=== PATIENT | female | born 1995 | race Caucasian/White ===

== ENCOUNTER 2019-04-13 01:20 | Emergency (ER) | payer BC ==
[~2019-04-13] VITALS: Ht 170.2 cm; Wt 59.0 kg
[2019-04-13 01:32] VITALS: BP 115/81
[2019-04-13] MEDS ORDERED: DIPHENHYDRAMINE25 M1 ORAL (01:56)
[2019-04-13] MEDS ORDERED: PREDNISONE20 MG ORAL (01:56)
[2019-04-13 02:01] VITALS: BP 115/81
--- NOTE | 2019-04-13 05:08 | Emergency Room Report ---
History of Present Illness General Chief Complaint: Allergic Reaction Source: Patient Present Illness HPI 24-year-old female presents ED for evaluation. Complaining of lip swelling which started last night. States that Thursday evening she had a turkey burger after which she started having nausea vomiting symptoms. States symptoms resolved by Thursday evening and at that time she started developing lip swelling. Patient denies any known food or drug allergies. Patient states she did take multiple [id number] medications to work on her symptoms prior to onset of lip swelling. Denies any tongue swelling or throat swelling. Denies any shortness of breath. Denies pain. Denies any rash. No other aggravating relieving factors. Denies any other associated symptoms Allergies: Coded Allergies: No Known Allergies (Unverified , 04/13/19) Patient History Past Medical History: none Past Surgical History: none Pertinent Family History: none Social History: Denies: smoking, alcohol use, drug use Last Menstrual Period: 04/03/19 Now: No Immunizations: UTD Reviewed Nursing Documentation: PMH: Agreed; PSxH: Agreed Nursing Documentation-PMH Past Medical History: No Stated History Review of Systems All Other Systems: negative except mentioned in HPI Physical Exam Vital Signs Date Time Temp Pulse Resp B/P (MAP) Pulse Ox O2 Delivery O2 Flow Rate FiO2 04/13/19 01:27 98.8 76 14 115/81 (92) 98 Room Air Sp02 EP Interpretation: reviewed, normal General Appearance: no apparent distress, alert, GCS 15, non-toxic Head: normocephalic Eyes: bilateral eye normal inspection, bilateral eye PERRL ENT: hearing grossly normal, normal pharynx, no angioedema, normal voice, other - lower lip swelling Neck: full range of motion, supple/symm/no masses, other - no stridor Respiratory: chest non-tender, lungs clear, normal breath sounds, speaking full sentences Cardiovascular #1: regular rate, rhythm, no edema Gastrointestinal: normal inspection Rectal: deferred Genitourinary: no CVA tenderness Musculoskeletal: normal inspection Neurologic: alert, motor strength/tone normal, oriented x3, sensory intact, responsive, speech normal Psychiatric: normal inspection Skin: no rash Lymphatic: normal inspection Medical Decision Making Diagnostic Impression: Primary Impression: Allergic reaction Qualified Codes: T78.40XA - Allergy, unspecified, initial encounter ER Course Hospital Course 24 yo F presents with lip swelling. Differential diagnoses include: allergic reaction, angioedema, anaphylaxis Clinical course Patient placed on stretcher. Initial history and physical exam reveals young female in no acute distress. There is lower lip swelling noted. Upper lip is unremarkable. No tongue swelling. No stridor. Lungs clear. No urticaria or hives. I discussed findings with patient. Is unclear what triggered her allergic reaction. No signs of anaphylaxis. No signs of respiratory distress. Given prednisone and Benadryl in ED. Will discharge to home. Safe for discharge for close outpatient follow-up i. I feel this is a highly complex case requiring extensive working including EKG/Rhythm strip, Xray/CT/US, Blood/urine lab work, repeat exams while in ED, and administration of strong opiates/narcotics for pain control, admission to hospital or close patient follow up. Diagnosis - allergic reaction Stable and discharged to home with prescriptions for prednisone, Benadryl. Followup with PMD. Return to ED if symptoms recur or worsen Last Vital Signs Date Time Temp Pulse Resp B/P (MAP) Pulse Ox O2 Delivery O2 Flow Rate FiO2 04/13/19 02:01 98.8 76 14 115/81 98 Room Air Status: improved Disposition: HOME, SELF-CARE Condition: Stable Scripts Prednisone* (PREDNISONE*) 20 Mg Tablet 40 MG ORAL DAILY for 5 Days, #10 TAB Prov: Elie Guardado MD 04/13/19 Diphenhydramine Hcl* (DIPHENHYDRAMINE HCL*) 25 Mg Capsule 25 MG ORAL Q6H PRN for Itching for 5 Days, #30 CAP 0 Refills Prov: Elie Guardado MD 04/13/19 Referrals: NOT CHOSEN IPA/,REFERRING (PCP) Patient Instructions: Food Allergy, [id number] Elie Guardado MD Apr 13, 2019 05:08
== END 2019-04-13 02:02 | disposition home or self-care (01) ==
LOC: EMR 01:41
DX: T78.40XA Allergy, unspecified, initial encounter (principal); X58.XXXA Exposure to other specified factors, initial encounter; Y92.9 Unspecified place or not applicable
CPT/HCPCS: 99282; J7512